=== PATIENT | female | born 1945 | race Caucasian/White ===

== ENCOUNTER → 2020-05-11 10:08 | Outpatient (CLI) | payer MEDICARE, OTHER, SELFPAY ==
--- NOTE | 2020-05-11 10:11 | US_ITS ---
STUDY: RENAL ULTRASOUND - COMPLETE REASON FOR EXAM: Female, 74 years old. URINARY RETENTION TECHNIQUE: Ultrasound evaluation of the kidneys was performed with real-time and static desouza-scale imaging. COMPARISON: None. FINDINGS: RIGHT KIDNEY: Normal location of the right kidney, which is normal in size. The right kidney measures 10.3 cm x 5.3 cm x 4.5 cm. There is a normal cortex of the right kidney. The renal cortex measures 1.0 cm. There is no right renal mass or cyst. There are no right renal calculi. There is an extra-renal pelvis of the right kidney. There is no distention of the renal calyces. DISTAL RIGHT URETER: There is non-visualization of the distal right ureter. There is no demonstrated right ureterovesical junction calculus. There is no demonstrated right ureteral jet. LEFT KIDNEY: Normal location of the left kidney, which is normal in size. The left kidney measures 11.3 cm x 5.2 cm x 5.4 cm. There is a normal cortex of the left kidney. The renal cortex measures 1.2 cm. There is no left renal mass or cyst. There are no left renal calculi. There is an extra-renal pelvis of the left kidney. There is no distention of the renal calyces. DISTAL LEFT URETER: There is non-visualization of the distal left ureter. There is no demonstrated left ureterovesical junction calculus. There is no demonstrated left ureteral jet. BLADDER: The distended urinary bladder has a volume of 417 ml. The empty urinary bladder has a volume of 154 ml. There is a normal wall thickness of the distended urinary bladder. There is no demonstrated mass within the urinary bladder. There are no demonstrated bladder calculi. US/Kidney and Bladder IMPRESSION: Fullness of both renal pelves suggestive of extrarenal pelves. Electronically Signed: Hi Mireles, at 13:45 EST , Service support ,
== END ==
PROVIDERS: PCP Internal Medicine; Referring Provider Urology; Visit Provider Urology
DX: R33.9 Retention of urine, unspecified (principal)
CPT/HCPCS: 76770

== ENCOUNTER 2020-08-09 07:56 | Observation (INO) | payer MEDICARE, OTHER, SELFPAY ==
--- NOTE | 2020-08-04 12:25 | EKG12_ITS ---
Test Reason : PREOP Blood Pressure : / mmHG Vent. Rate : 057 BPM Atrial Rate : 057 BPM P-R Int : 218 ms QRS Dur : 078 ms QT Int : 428 ms P-R-T Axes : 065 031 053 degrees QTc Int : 416 ms Sinus bradycardia with 1st degree A-V block Otherwise normal ECG Confirmed by SEVEN ESTES, VANESA ([id number]), visual effects editor FADI PAGE ([id number] on 08/05/2020 7:49:49 AM Referred By: Rubina Hutton Confirmed By:VANESA AMEZCUA MD
[2020-08-04 13:28] LABS: Hematocrit 38.5 % (37-47); Hemoglobin 12.9 g/dL (12.0-15.0); Mean Corp Hgb Conc 33.5 g/dL (32-36); Mean Corpuscular Hgb 29.4 pg (27.0-32.0); Mean Corpuscular Volume 87.7 fL (81-99); Mean Platelet Vol. 9.4 fl (6.2-12.0); Platelet Count 330 K/mm3 (150-450); RBC Distribution Width CV 12.9 % (11.6-14.6); RBC Distribution Width SD 41.4 fl (35.1-43.9); Red Blood Count 4.39 M/mm3 (4.2-5.4); White Blood Count 7.1 K/mm3 (4.4-11.0)
[2020-08-04 13:51] LABS: Anion Gap 6 (5-15); BUN 14 mg/dL (7-18); BUN/Creat Ratio 15.5 RATIO (10-20); Calcium,Total 9.1 mg/dL (8.5-10.1); Chloride 104 mmol/L (98-107); EST Glomerular Filtration Rate 65 mL/min (>60); Est Glom Filt Rate - Afr Amer 79 mL/min (>60); Glucose 84 mg/dL (74-106); Potassium 4.2 mmol/L (3.5-5.1); Sodium Level 137 mmol/L (136-145)
[2020-08-09] VITALS (15 sets, daily range): BP systolic 89–127; BP diastolic 48–93; PULSE 58–73; RESP 16–18; TEMP 36.2–36.8; O2SAT 98–100; BMI 27.5
[2020-08-09] MEDS: Lactated Ringers 1,000 ML 100 ML IV ×2 (07:32→09:30)
--- NOTE | 2020-08-09 07:54 | OP.PCM_ITS ---
Problem List (1) Cystocele Status: Acute (2) Rectocele Status: Acute (3) Vaginal vault prolapse after hysterectomy Status: Acute Report of Operation Date of Procedure: 08/09/20 Pre-Operative Diagnosis: cystocele, rectocele, vaginal vault prolapse Post-Operative Diagnosis: same Surgery/Procedure Performed:: anterior repair with Dermis, bilateral sacrospinous ligament fixation, posterior repair, cystoscopy Type of Anesthesia:: General Estimated Blood Loss (mL): 20cc Description of Procedure: The patient is a 74-year-old female with lupus and rectocele, cystocele and vault prolapse status post hysterectomy. She presents today for definitive surgical intervention for her prolapse. Informed consent was obtained including the risk of the discussion of COVID-19 as well as failure of the procedure. She agreed to proceed. The patient was taken to the operating room and placed on the operating room table. Anesthesia monitored the head, neck, airway, IV access and vital signs throughout the case. Once anesthesia was appropriately administered, the patient was placed into dorsal lithotomy in Trendelenburg position. She was prepped and draped in usual sterile fashion. A Ny catheter was inserted and the bladder was drained. At this time the anterior vaginal wall was isolated and injected submucosally with 1% lidocaine with epinephrine. A midline vertical incision was made approximately 2 cm in length. Bilaterally dissection continued until the sacrospinous ligaments were identified and freed from surrounding tissues. The Mimi device was used to pass an Ethibond suture through each sacrospinous ligament. The suture was then brought through the dermis and then through the vaginal mucosa in full-thickness fashion. The dermis was trimmed to length and secured using interrupted 2-0 Vicryl in the area of the bladder neck and bilaterally is close to the white line as possible. At this time the midline incision was closed using running interlocking 2-0 Vicryl. The sacrospinous ligament sutures were then tied and the apex was pulled into position. The cystocele was reduced. At this time attention was turned to the posterior aspect where the area of the defect in the midline was injected submucosally and a midline incision was made. Dissection was performed in full-thickness fashion over the area of the defect. The rectovaginal fascia was then brought together in a 2 layer closure with 2-0 Vicryl interrupted catherine ture. The vaginal mucosa was then closed over the repair using running interlocking 2-0 Vicryl. A cystourethroscopy was then performed through the urethra, revealing no evidence of injury to the urinary bladder. The cystocele repair was evident. Bilateral ureteral orifices were identified and correct anatomic position. Bilateral ureteral jets of clear yellow urine were observed. At this time the cystoscope was removed and the Ny catheter was replaced. The vagina was packed with vaginal packing and estrogen cream. The patient was awakened and taken to the recovery room in good condition. There were no complications during this procedure. Grafts/Implants Used: Dermis - Complications none - Admit VTE Documentation VTE Present on Admission: Yes VTE Mechan Device Prophylaxis: SCD's VTE Pharm Prophylaxis ordered?: Yes
--- NOTE | 2020-08-09 08:01 | DCINST_ITS ---
Discharge Diet: No Restrictions Discharge Activity: May Not Drive, May Shower, - - no tub bathing, no swimming, no hot tubs no sexual activity no exercise, no lifting over 5 pounds, no strenuous activity May resume sexual activity in: 8 weeks Lifting Restrictions: 5 pounds Call your doctor if your incision/area has: Continuous Slow Oozing, Sudden Increased Bleeding, Increased Pain/ Swelling, Foul Smelling Discharge, Swelling at the incision site Call your doctor if you observe: Fever of 101 or Higher, Inability to urinate, Inability to have a bowel movement, Calf discomfort, Uncontrolled pain Allergies/Adverse Reactions: Allergies peanut Allergy (Verified 08/09/20 07:02) Other PARALYSIS procaine [From Novocain] Allergy (Verified 08/09/20 07:02) Other HYPERVENTILATION/ PASSING OUT aspirin [ASA] Adverse Reaction (Verified 08/09/20 07:02) Rash NSAIDS (Non-Steroidal Anti-Inflamma Adverse Reaction (Verified 08/09/20 07:02) Rash Sulfa (Sulfonamide Antibiotics) Adverse Reaction (Verified 08/09/20 07:02) Chest tightness Medications to take at Discharge Baclofen 10 mg PO QHS 08/02/20 Calcium Carbonate/Vitamin D3 [Calcium 250+D Tablet] 1 ea PO DAILY 08/02/20 Cholecalciferol (Vitamin D3) [Vitamin D3] 1 tab PO DAILY 08/02/20 Lactobacillus Combination No.4 [Probiotic] 1 ea PO DAILY 08/02/20 Magnesium Citrate 125 mg PO DAILY 08/02/20 Magnesium Glycinate, Mag Oxide [Magnesium Glycinate] 360 mg PO DAILY 08/02/20 Multivitamin [Multiple Vitamins] 1 ea PO DAILY 08/02/20 Naproxen Sodium [Aleve] 220 mg PO PRN PRN 08/02/20 [place]-3 Fatty Acids/Fish Oil [Fish Oil 1,000 mg Capsule] 1 ea PO BID 08/02/20 Trimethoprim 100 mg PO QHS 08/02/20 Primary Care Physician: Layla Jean MD [Primary Care Provider] - Test Results: Test results from this visit will be discussed in further detail at your follow- up appointment, if applicable. Please Follow Up With: Rubina Hutton MD When: call office for appt Proposed Discharge Date: 08/10/20
[2020-08-09] MEDS: Cefazolin 2 GM in 0.9% Normal Saline 100 ML IV (08:46)
[2020-08-09] MEDS: Lidocaine 1% /Epi 1:100 (20ml) 20 ML Vial (09:05)
[2020-08-09] MEDS: Lubricating Jelly 60 GM Tube 30 GM TOPICAL (09:05)
[2020-08-09] MEDS: Estrogens,Conj. 1 Tube 1 DOSE (10:17)
[2020-08-09] MEDS: Ondansetron 4 MG/2 ML Vial IV (12:39)
[2020-08-09] MEDS: Dextrose 5%-Lactated Ringers 1,000 ML 100 ML IV ×2 (12:52→22:58)
[2020-08-09] MEDS: proMETHazine 25 MG/ML Syringe 12.5 MG IV (16:24)
[2020-08-09] MEDS: 0.9% Saline Lock 10 ML Syringe IV (16:24)
[2020-08-09] MEDS: Cephalexin 500 MG Capsule PO ×2 (17:32→21:13)
[2020-08-09] MEDS: HYDROcodone Bitartrate/Apap 5/325 Tablet PO ×2 (17:37→23:35)
[2020-08-09] MEDS: Baclofen 10 MG Tablet PO (21:12)
[2020-08-09] MEDS: Docusate Sodium 100 MG Capsule PO (21:12)
[2020-08-10 02:00] VITALS: BP 107/54; PULSE 73; RESP 16; TEMP 36.8; O2SAT 98
--- NOTE | 2020-08-10 02:06 | EKG12_ITS ---
Test Reason : CP Blood Pressure : / mmHG Vent. Rate : 068 BPM Atrial Rate : 068 BPM P-R Int : 238 ms QRS Dur : 086 ms QT Int : 396 ms P-R-T Axes : 057 001 041 degrees QTc Int : 421 ms Sinus rhythm with 1st degree A-V block Low voltage QRS Nonspecific T wave abnormality Abnormal ECG When compared with ECG of 04-AUG-2020 12:37, T wave inversion now evident in Anterior leads Confirmed by SEVEN ESTES, VANESA ([id number]), boiler tenders supervisor JAISON BURTON ([id number]) on 08/11/2020 11:06:40 AM Referred By: Rubina Hutton Confirmed By:VANESA AMEZCUA MD
[2020-08-10] MEDS: Mag Hydrox/Al Hydrox/Simeth 30 ML UDC PO (02:17)
[2020-08-10 02:27] LABS: Absolute Lymphocyte Count 1.27 X10^3/uL (0.83-4.51); Absolute Neutrophil Count 9.9 X10^3/uL (2.0-7.7); Basophil# 0.02 X10^3/uL; Basophil% 0.2 % (0-1); Eosinophil# 0.05 X10^3/uL; Eosinophils% 0.4 % (0-5); Hematocrit 32.5 % (37-47); Hemoglobin 10.8 g/dL (12.0-15.0); Lymphocyte # 1.27 X10^3/ul (4.0); Lymphocyte % 10.1 % (19-41); Mean Corp Hgb Conc 33.2 g/dL (32-36); Mean Corpuscular Volume 87.1 fL (81-99); Monocyte# 1.25 X10^3/uL; NRBC Flagged by Analyzer 0 % (0-5); Neutrophil # 9.93 X10^3/uL (2.7-7.7); Platelet Count 254 K/mm3 (150-450); RBC Distribution Width CV 12.8 % (11.6-14.6); RBC Distribution Width SD 40.5 fl (35.1-43.9); Red Blood Count 3.73 M/mm3 (4.2-5.4); White Blood Count 12.6 K/mm3 (4.4-11.0)
[2020-08-10 02:47] LABS: Anion Gap 7 (5-15); BUN 10 mg/dL (7-18); Calcium,Total 8.3 mg/dL (8.5-10.1); Chloride 103 mmol/L (98-107); Creatinine, Serum 0.71 mg/dL (0.55-1.02); EST Glomerular Filtration Rate 85 mL/min (>60); Est Glom Filt Rate - Afr Amer 103 mL/min (>60); Estimated Creatinine Clearance 39.63 ml/min; Glucose 123 mg/dL (74-106); Sodium Level 135 mmol/L (136-145)
--- NOTE | 2020-08-10 04:39 | PN_ITS ---
Physical Exam Subjective: Called to see patient with pressure in her left breast. No sweating, no increased nausea, no further vomiting, no pain in her jaw or arm. She did have vomiting earlier in the day following anesthesia that resolved with 1 dose of Phenergan. Currently upon entering the room, patient is comfortably sleeping. She reports that after taking the Mylanta, the pain resolved within an hour. She reports that her surgical pain has increased within the last few hours mostly with rectal and vaginal pressure. - Physical Exam Vital Signs Temp 98.2 F 08/10/20 02:00 Pulse 73 08/10/20 02:00 Resp 16 08/10/20 02:00 BP 107/54 L 08/10/20 02:00 Pulse Ox 98 08/10/20 02:00 Intake & Output 08/08/20 08/09/20 08/10/20 23:59 23:59 23:59 Intake Total 3296.67 / 3696.67 400 / 400 Output Total 1270 / 1720 450 / 450 Balance 2026.67 / 1976.67 -50 / -50 Weight: 68.3 kg Intake: Oral 850 / 1250 400 / 400 Intake, IV Amount 2446.67 / 2446.67 Cefazolin 10 GM/50 ML In 0.9% 110 / 110 Normal Saline 100 ML @ 150 mls/ hr IV PREOP ONE Rx#:[id number] Dextrose 5%-Lactated Ringers 1, 1000 / 1000 000 ML @ 100 mls/hr IV .Q10H [facility] Rx#:[id number] Lactated Ringers 1,000 ML @ 100 1336.67 / 1336.67 mls/hr IV .Q10H [facility] Rx#: [id number] Output: Urine 670 / 1120 450 / 450 Emesis 600 / 600 General: Alert, Oriented x3, Cooperative, No apparent distress HEENT: Atraumatic, Normocephalic Oral: Moist Mucosa Neck: Supple, Trachea Midline Lungs: Clear to auscultation, Normal air movement, No wheeze Cardiovascular: Regular rate, Regular Rhythm, - - EKG reviewed, reveals no apparent change from previous preoperative EKG Abdomen: Bowel Sounds Present, Soft, Non Tender, Non-Distended Skin: No rashes, No breakdown, - - SCDs are in place Musculoskeletal: No Muscle Wasting Neurological: Cranial nerves II-XII grossly intact Psych/Mental Status: Normal Affect Comment: Ny catheter with clear yellow urine, removed, vaginal packing removed Microbiology Past 72 Hours 08/08/20 10:30 SARS-CoV-2 Antigen (Rapid) - Final Interface Orders Laboratory Tests Past 24 Hrs 08/10/20 08/10/20 02:15 02:15 WBC 12.6 H RBC 3.73 L Hgb 10.8 L Hct 32.5 L MCV 87.1 MCH 29.0 MCHC 33.2 RDW Std Deviation 40.5 RDW Coeff of Ary 12.8 Plt Count 254 MPV 9.0 Immature Gran % (Auto) 0.300 Neut % (Auto) 79.0 H Lymph % (Auto) 10.1 L [place] % (Auto) 10.0 Eos % (Auto) 0.4 Baso % (Auto) 0.2 Absolute Neuts (auto) 9.9 H Absolute Lymphs (auto) 1.27 Nucleated RBC % 0 Sodium 135 L Potassium 4.0 Chloride 103 Carbon Dioxide 25.0 Anion Gap 7 BUN 10 Creatinine 0.71 Estim Creat Clear Calc 39.63 Est GFR (MDRD) Af Amer 103 Est GFR (MDRD) Non-Af 85 BUN/Creatinine Ratio 14.0 Glucose 123 H Calcium 8.3 L Troponin I < 0.015 Medical Necessity - Tobacco Use Smoking Status: Never smoker Tobacco Use: Non-smoker Assessment/Plan All Active Problems Cystocele (Acute) Rectocele (Acute) Vaginal vault prolapse after hysterectomy (Acute) Await bladder scan trial of void Proceed with 2 more troponin levels as ordered Home later today pending results of above with or without Ny catheter
[2020-08-10 08:00] VITALS: BP 107/44; PULSE 74; RESP 18; TEMP 37; O2SAT 98
[2020-08-10] MEDS: Ondansetron 4 MG/2 ML Vial IV (08:18)
[2020-08-10] MEDS: 0.9% Saline Lock 10 ML Syringe IV (08:18)
[2020-08-10] MEDS: Dextrose 5%-Lactated Ringers 1,000 ML 100 ML IV (08:18)
[2020-08-10] MEDS: Cephalexin 500 MG Capsule PO (09:37)
[2020-08-10] MEDS: Docusate Sodium 100 MG Capsule PO (09:37)
[2020-08-10] MEDS: Enoxaparin 40 MG/0.4 ML Syringe SC (09:37)
[2020-08-10] MEDS: HYDROcodone Bitartrate/Apap 5/325 Tablet PO (09:41)
--- NOTE | 2020-08-10 11:02 | NURSING ---
RN CM Assessment Introduced role of RN CM to patient.? Patient is alert, oriented and able?to participate in RN CM Assessment. ?Care providers, pharmacy, and demographics verified. Admit Dx: Cystocele, Rectocele, Vault prolapse Re-Admit: N/A- Obs admit Barriers/Issues: none PCP: Layla Jean Specialists: Textile Technical Officer- Dr Hutton, Spine- Dr Brea Adams at [facility] Preferred Pharmacy: [facility] Insurance: [facility] A/B, O Rx Benefit:?Yes LNOK: Jamil Taylor LW/HPOA: Has both completed- here with patient and can get a copy. HPOA- Jamil Taylor Living Arrangements:? Lives with her in a H, no steps to enter home. ADL?s: Independent with ambulation and ADLs Transportation: Both patient and drive. Jamil to transport upon DC. DME: Walker, Cane, Knee scooter. Has a shower chair available if needed. Goal: Home and does not think will have any needs. Awaiting post void bladder scan- PDC home today with or without gordon catheter. Aware RNCM will continue to follow for any emerging needs. Denies any issues, concerns or questions with DC planning at this time. DC PLAN: Home with no anticipated needs identified at this time. JACE Hines
--- NOTE | 2020-08-10 11:10 | NURSING ---
RNCM PARKER Note: Reviewed and explained PARKER form with patient in regards to current treatment this hospital stay. Aware outpatient billing is determined by her insurance plan and continual review is conducted to change status to Inpatient stay if warranted. Patient denies any questions regarding PARKER form and signed form- original copy placed in patient hard chart and patient provided a copy. JACE Hines.
--- NOTE | 2020-08-10 12:07 | NURSING ---
DR STEWART MADE AWARE OF PT VOID 100ML, BLADDER SCAN 876ML. ORDER TO REPLACE BRENNAN & SEND PT HOME WITH. INSTRUCT PT ON HOW TO REMOVE CATHETER Saturday @ . SEE DR STEWART IN OFFICE ON SATURDAY.
[2020-08-10 13:18] VITALS: BP 143/57; PULSE 67; RESP 18; TEMP 37; O2SAT 95
[2020-08-10 14:00] VITALS: BP 143/57; PULSE 67; RESP 18; TEMP 37; O2SAT 95
--- NOTE | 2020-08-10 14:45 | PHA.DC.MR ---
Pharmacy Service has performed discharge medication reconciliation for this patient. The patient's discharge medication list was reviewed for discrepancies and discrepancies were resolved. Home Medications Baclofen 10 mg PO QHS 08/02/20 Calcium Carbonate/Vitamin D3 [Calcium 250-D Tablet] 1 ea PO DAILY 08/02/20 Cholecalciferol (Vitamin D3) [Vitamin D3] 1 tab PO DAILY 08/02/20 Lactobacillus Combination No.4 [Probiotic] 1 ea PO DAILY 08/02/20 Magnesium Citrate 125 mg PO DAILY 08/02/20 Magnesium Glycinate, Mag Oxide [Magnesium Glycinate] 360 mg PO DAILY 08/02/20 Multivitamin [Multiple Vitamins] 1 ea PO DAILY 08/02/20 Naproxen Sodium [Aleve] 220 mg PO PRN PRN 08/02/20 [place]-3 Fatty Acids/Fish Oil [Fish Oil 1,000 mg Capsule] 1 ea PO BID 08/02/20 Trimethoprim 100 mg PO QHS 08/02/20 Hydrocodone Bitart/Apap 5-325 [Forrest 5/325] 2 tab PO Q6H PRN PRN 7 Days #20 tab 08/09/20
== END 2020-08-10 14:30 | disposition home or self-care (01) ==
LOC: MS3 10:31 → SDC 10:33 → MS3 10:33
PROVIDERS: Admitting Provider Urology; PCP Internal Medicine; Referring Provider Urology; Visit Provider Urology
PROC: (CPT 57260; principal; 2020-08-09 08:15)
DX: N99.3 Prolapse of vaginal vault after hysterectomy (principal); Z20.828 Contact with and (suspected) exposure to other viral communicable diseases; E78.00 Pure hypercholesterolemia, unspecified; M32.9 Systemic lupus erythematosus, unspecified; Z79.899 Other long term (current) drug therapy; R00.1 Bradycardia, unspecified; I44.0 Atrioventricular block, first degree; R94.31 Abnormal electrocardiogram [ECG] [EKG]; N39.41 Urge incontinence; N95.2 Postmenopausal atrophic vaginitis
CPT/HCPCS: 57260; 36415; 80048; 84484; 85025; 85027; 87426; 93005; 96361; 96372; 96374; 96375; 96376; 99218; 99251; C9803; J7120; A4216; G0378; G0379; G0463; J2405